=== PATIENT | female | born 1965 | race Caucasian/White ===

== ENCOUNTER → 2017-12-02 13:42 | Outpatient (CLI) | payer OTHER, SELFPAY ==
[2017-12-02 14:53] LABS: Absolute Lymphocyte Count 2.64 X10^3/ul (0.83-4.51); Absolute Neutrophil Count 3.1 X10^3/uL (2.0-7.7); Basophil# 0.05 X10^3/uL; Basophil% 0.8 % (0-1); Eosinophil# 0.19 X10^3/uL; Eosinophils% 2.9 % (0-5); Hematocrit 38.6 % (37-47); Hemoglobin 12.7 g/dl (12.0-15.0); Lymphocyte # 2.64 X10^3/ul (4.0); Lymphocyte % 40.9 % (19-41); Mean Corp Hgb Conc 32.9 g/gl (32-36); Mean Corpuscular Hgb 31.5 pg (27.0-32.0); Mean Corpuscular Volume 95.8 fL (81-99); Monocyte# 0.47 X10^3/uL; Monocyte% 7.3 % (0-10); Neutrophil # 3.11 X10^3/uL (2.7-7.7); Neutrophil % 48.1 % (47-70); Platelet Count 211 K/mm3 (150-450); RBC Distribution Width CV 12.6 % (11.6-14.6); RBC Distribution Width SD 43.8 fl (35.1-43.9); Red Blood Count 4.03 M/mm3 (4.2-5.4); White Blood Count 6.5 K/mm3 (4.4-11.0)
[2017-12-02 15:03] LABS: POSITIVE COUNT NO; POSITIVE DIFFERENTIAL NO; POSITIVE MORPHOLOGY NO
[2017-12-02 15:24] LABS: Vitamin D,25 Hydroxy 32.9 ng/mL (29.95-100.01)
== END ==
PROVIDERS: Family Provider Family Medicine; PCP Family Medicine; Visit Provider Obstetrics & Gynecology Gynecology
DX: R53.82 Chronic fatigue, unspecified (principal)
CPT/HCPCS: 36415; 82306; 85025

== ENCOUNTER 2018-12-30 05:26 | Day surgery (SDC) | payer OTHER, SELFPAY ==
[2017-07-09 11:07] VITALS: BMI 20.5
[2018-12-30] VITALS (7 sets, daily range): BP systolic 71–129; BP diastolic 58–92; PULSE 50–65; RESP 14–18; TEMP 36.5–36.6; O2SAT 98–100
--- NOTE | 2018-12-30 06:15 | PCM.HP.STD ---
Problem List (1) Screening for intestinal cancer Status: Acute History of Present Illness Date of Admission: 12/30/18 The patient is a 53 year old F who presents for screening colonoscopy today. She has never had a screening colonoscopy. There is no family history of colon cancer. She enjoys very excellent health. She has no chronic medical problems. Past Medical History Allergies No Known Allergies Allergy (Verified 12/30/18 05:40) Home Medications: Ambulatory Orders Medication Instructions Recorded Alis's wort 300 mg capsule 300 mg PO QDAY 07/09/17 Biotin 5,000 mcg SL DAILY 12/22/18 Multivit-Min/Iron/Folic/Lutein 1 ea PO DAILY 12/22/18 [Centrum Silver Women Tablet] Smoking Status: Never smoker Tobacco Use: Non-smoker Review of Systems Cardiovascular: Denies: Chest Pain Respiratory: Denies: Cough Gastrointestinal: Denies: Abdominal Pain, Melena Neurological: Denies: Difficulty swallowing Endocrine: Denies: Change in Body Habitus VTE Information - Inpt Only VTE Present on Admission: No Patient Problems: Active and Suspected Problems Screening for intestinal cancer (Acute) - Physical Exam General: Alert, Oriented x3, Cooperative, No apparent distress HEENT: Atraumatic Oral: Moist Mucosa Lungs: Clear to auscultation, Normal air movement Cardiovascular: Regular rate, Regular Rhythm Abdomen: Bowel Sounds Present, Soft, Non Tender, Non-Distended Extremities: No Calf Tenderness Psych/Mental Status: Normal Affect Vital Signs Temp Pulse Resp BP Pulse Ox 97.9 F 57 L 14 106/70 100 12/30/18 05:42 12/30/18 05:42 12/30/18 05:42 12/30/18 05:42 12/30/18 05:42 Oxygen Delivery Method Room Air Weight: 120 lb Body Mass Index (BMI) 20.0 Assessment/Plan All Active Problems Screening for intestinal cancer (Acute) Radiculopathy of lumbar region (Acute) Segmental and somatic dysfunction of lumbar region (Acute) Segmental and somatic dysfunction of sacral region (Acute) Segmental and somatic dysfunction of thoracic region (Acute) Segmental and somatic dysfunction of cervical region (Acute) 53-year-old female with no previous screening colonoscopy. I recommend a colonoscopy with possible biopsy or polypectomy is indicated. She is aware of the technique, benefits, risks, alternatives. She has had an opportunity to ask and have questions answered. She presents via open access today. We will proceed as noted. Felipe Faulkner M.D., F.A.C.S.
[2018-12-30] MEDS: Lactated Ringers 1,000 ML 75 ML IV (06:50)
--- NOTE | 2018-12-30 06:59 | OP.ENDO_ITS ---
12/30/2018 Jean-Paul Love [address] [place] [address] Re : Colonoscopy procedure for Madai Alonso Dear Dr. Love This procedure was performed on Sunday, December 30, 2018. My impressions and recommendations are as follows: Impressions : - Non-thrombosed external hemorrhoids, non-thrombosed internal hemorrhoids and internal hemorrhoids (Grade I) found on digital rectal exam. - Tortuous colon. - The examination was otherwise normal. - No specimens collected. Recommendations : - Discharge patient to home. - Resume previous diet. - Continue present medications. - Repeat colonoscopy in 10 years for screening purposes. My findings are described in the full procedure note, which is enclosed. If I can be of further assistance, please feel free to contact me at Doctor phone number(s): Work: . Sincerely, Felipe Faulkner MD 12/30/2018 6:58:39 AM This report has been signed electronically.
== END 2018-12-30 08:02 | disposition home or self-care (01) ==
LOC: EN 05:29 → AC 05:34
PROVIDERS: Family Provider Family Medicine; PCP Family Medicine; Referring Provider Surgery; Visit Provider Surgery
PROC: 0DJD8ZZ Inspection of Lower Intestinal Tract, Via Natural or Artificial Opening Endoscopic (ICD-10-PCS; CPT 45378; principal; 2018-12-30 06:25)
DX: Z12.11 Encounter for screening for malignant neoplasm of colon (principal); K64.0 First degree hemorrhoids
CPT/HCPCS: 45378; 99152; 99153; J7120; J2405

== ENCOUNTER → 2019-01-29 | Outpatient (CLI) | payer OTHER, SELFPAY ==
[2019-01-29 09:07] LABS: Red Blood Cells-Urine 0 SEEN /hpf (0-5); White Blood Cells 0 SEEN /hpf (0-5)
[2019-01-29 09:35] LABS: Absolute Lymphocyte Count 2.67 X10^3/uL (0.83-4.51); Absolute Neutrophil Count 3.5 X10^3/uL (2.0-7.7); Basophil# 0.06 X10^3/uL; Basophil% 0.8 % (0-1); Eosinophil# 0.27 X10^3/uL; Eosinophils% 3.7 % (0-5); Hematocrit 40.1 % (37-47); Hemoglobin 13.3 g/dL (12.0-15.0); Lymphocyte # 2.67 X10^3/ul (4.0); Lymphocyte % 36.8 % (19-41); Mean Corp Hgb Conc 33.2 g/dL (32-36); Mean Corpuscular Hgb 31.5 pg (27.0-32.0); Mean Platelet Vol. 9.7 fl (6.2-12.0); Monocyte# 0.74 X10^3/uL; Monocyte% 10.2 % (0-10); NRBC Flagged by Analyzer 0 % (0-5); Neutrophil % 48.2 % (47-70); Platelet Count 232 K/mm3 (150-450); RBC Distribution Width CV 12.1 % (11.6-14.6); Red Blood Count 4.22 M/mm3 (4.2-5.4); White Blood Count 7.3 K/mm3 (4.4-11.0)
[2019-01-29 09:38] LABS: Color, Urine Yellow (Yellow); Glucose, Dipstick Normal (Normal); Ketone-Dipstick Negative (Negative); Leukocyte Esterase-Dipstick Negative /ul (Negative); Nitrite-Dipstick Negative (Negative); Occult Blood-Urine Negative /ul (Negative); Protein-Dipstick Negative (Negative); Urine Bilirubin Dipstick Negative (Negative); Urine Clarity Sl. Cloudy (Clear); Urine Urobilinogen 1 mg/dl (Normal)
[2019-01-29 09:47] LABS: Bacteria RARE /hpf (None Seen); Mucous, Urine 1+ /hpf (<or=2+); Squamous Epithelial Cells - UA 0-5 SEEN /hpf (5-10)
== END | disposition home or self-care (01) ==
LOC: LAB 09:01
PROVIDERS: Family Provider Family Medicine; PCP Family Medicine; Referring Provider Obstetrics & Gynecology Gynecology; Visit Provider Obstetrics & Gynecology Gynecology
DX: R32 Unspecified urinary incontinence (principal); D72.820 Lymphocytosis (symptomatic)
CPT/HCPCS: 36415; 81001; 85025; 87086

== ENCOUNTER → 2019-02-25 | Outpatient (CLI) | payer OTHER, SELFPAY ==
--- NOTE | 2019-02-25 10:40 | BI_ITS ---
MAMMOGRAPHY - BILATERAL SCREENING REASON FOR EXAM: Female, 53 years old. Routine annual screening examination. PERTINENT HISTORY: Non-contributory. Remote left stereotactic breast biopsy. TECHNIQUE: Digital bilateral breast chana (3D mammographic acquisition) in the CC and MLO projections. 2-D mediolateral oblique (MLO) and craniocaudad (CC) views of both breasts were obtained. CAD: Full Field Digital Mammography with Computer Added Detection was performed. COMPARISON: Comparison is made with prior study August 08, 2016 and December 02, 2013. FINDINGS: Breast Composition: The breasts are extremely dense, which lowers the sensitivity of mammography. There are no dominant masses or suspicious calcifications. No other significant abnormalities are identified. There has been no significant change since the prior study. BI/SCREEN MAMM (CAD) W/CHANA BILAT IMPRESSION: Stable bilateral screening mammogram. Yearly follow-up mammogram recommended. (A) ASSESSMENT CATEGORY: BIRADS Category 1: Negative. A letter regarding these results will be sent to the patient by the facility within 30 days. Approximately 10% of breast cancers are not detected by mammography. A normal mammogram should not delay biopsy of a clinically suspicious abnormality. [id number] Electronically Signed: Hermelindo Ramos, at 13:01 EDT , Service support ,
== END | disposition home or self-care (01) ==
LOC: OPBI 10:38
PROVIDERS: Family Provider Family Medicine; PCP Family Medicine; Referring Provider Obstetrics & Gynecology Gynecology; Visit Provider Obstetrics & Gynecology Gynecology
DX: Z12.31 Encounter for screening mammogram for malignant neoplasm of breast (principal)
CPT/HCPCS: 77063; 77067

== ENCOUNTER → 2019-03-03 | Outpatient (CLI) | payer OTHER, SELFPAY ==
[2019-03-03 14:23] LABS: Thyroid Stim Hormone (TSH) 1.59 uIU/mL (0.358-3.74)
== END | disposition home or self-care (01) ==
LOC: LAB 12:27
PROVIDERS: Family Provider Family Medicine; PCP Family Medicine; Referring Provider Family Medicine; Visit Provider Family Medicine
DX: R63.5 Abnormal weight gain (principal)
CPT/HCPCS: 36415; 84443

== ENCOUNTER → 2019-12-11 | Outpatient (CLI) | payer OTHER, SELFPAY ==
--- NOTE | 2019-12-11 14:01 | US_ITS ---
STUDY: THYROID ULTRASOUND REASON FOR EXAM: Female, 53 years old. nodule felt by doctor TECHNIQUE: Ultrasound evaluation of the thyroid was performed with real-time and static moreau-scale imaging. COMPARISON: None. FINDINGS: RIGHT LOBE: The right lobe of the thyroid gland measures 5.3 x 1.7 x 1.6 cm. There is a homogeneous echotexture. 3 nodules noted in the mid and lower pole. One appears to be calcified and measures 8 x 6 x 6 mm. 2 other heterogeneous nodules with irregular margins and kj nodular DOPPLER flow measured 5 x 5 x 4 and 6 x 6 x 4 mm. LEFT LOBE: The left lobe of the thyroid gland measures 4.5 x 1.9 x 1.3 cm. There is a homogeneous echotexture. 3 heterogeneous nodules in the upper and midpole measure 13 x 12 x 8 mm, 9 x 6 x 7 mm and 8 x 4 x 4 mm. The first 2 are irregular. The first demonstrates intra nodular flow and the others, kj Nodular DOPPLER blood flow. ISTHMUS: The isthmus measures 2 mm . The regional lymph nodes are normal. US/Thyroid IMPRESSION: Multinodular thyroid goiter. Recommend correlation with nuclear medicine and possible FNA largest nodule. Electronically Signed: Manohar Phelan MD at 17:09 EDT , Service support ,
== END | disposition home or self-care (01) ==
LOC: US 14:00
PROVIDERS: PCP Family Medicine; Referring Provider Family Medicine; Visit Provider Family Medicine
DX: E04.1 Nontoxic single thyroid nodule (principal)
CPT/HCPCS: 76536

== ENCOUNTER → 2019-12-15 | Outpatient (CLI) | payer OTHER, SELFPAY ==
[2019-12-15 13:18] LABS: Free T3 3.1 pg/mL (2.18-3.98); T4 Free Direct 1.09 ng/dL (0.76-1.46); Thyroid Stim Hormone (TSH) 1.37 uIU/mL (0.358-3.74)
[2019-12-21 03:59] LABS: Anti-Thyroglobulin AB 16.4 IU/mL (0.0-0.9); Thyroglobulin RIA 9.6 ng/mL (.); Thyroid Peroxidase AB 100 IU/mL (0-34)
== END | disposition home or self-care (01) ==
PROVIDERS: PCP Family Medicine; Referring Provider Family Medicine; Visit Provider Family Medicine
DX: E04.1 Nontoxic single thyroid nodule (principal)
CPT/HCPCS: 36415; 84432; 84439; 84443; 84481; 86376; 86800

== ENCOUNTER 2019-12-18 05:49 | Day surgery (SDC) | payer OTHER, SELFPAY ==
[2019-12-11 13:49] LABS: Probe Check PASS; Specimen Processing Control PASS
[2019-12-18] VITALS (8 sets, daily range): BP systolic 81–109; BP diastolic 44–68; PULSE 57–66; RESP 15–16; TEMP 36.2–36.9; O2SAT 95–100; BMI 20.2
--- NOTE | 2019-12-18 | WART_PTH ---
PATIENT: ALEXIS WASHBURN LOC: [facility] U#:[id number] AGE/SX: 53/F ROOM: RE12/18/[address]: Dr. Abdiel Puente DPM : 1965 BED: DIS: 12/18/2019 SPEC #: [id number] RECD: 12/18/19 09:50 STATUS: MELISA DANIELLE #: [id number] ARI: 12/18/19 00:[address]: Abdiel Puente DEPT: SURGICAL PATHOLOGY RECD BY: Alcides Gaines ENTERED: 12/18/19 09:51 SP TYPE: Guillermina TRAN DR: Dr. Jean-Paul Love MD Tissues: Epidermis Procedures: Surgery Specimen Level IV HEADER OPERATION: Excision and chemical destruction, plantar warts right foot PRE-OP DIAGNOSIS: Plantar warts right foot TISSUE SUBMITTED: Plantar warts right foot MICROSCOPIC DIAGNOSIS Skin lesions of right foot, shave biopsies: Consistent with fragments of verruca vulgaris. AM:sophie 12/21/19 MICROSCOPIC DESCRIPTION Slides are reviewed. GROSS DESCRIPTION Received in fixative is one container labeled with the patient's name and designated plantar warts right foot. The specimen consists of multiple irregular fragments of light wilkins shaved skin fragments ranging in size from 0.7 to 3.5 cm. Pallet Stone Positioner sections are submitted in one cassette. / AM:sophie 12/18/19 TC:5 CPT: 17019
[2019-12-18] MEDS: Lactated Ringers 1,000 ML 100 ML IV (06:19)
[2019-12-18] MEDS: Cefazolin 2 GM in 0.9% Normal Saline 100 ML IV (07:28)
[2019-12-18] MEDS: Bupiv/Epi 0.25% 30 ML Vial (07:45)
--- NOTE | 2019-12-18 08:46 | DCINST_ITS ---
Discharge Diet: Light diet - advance as tolerated Discharge Activity: May Not Drive, May not drive while taking narcotic pain medications. Weight Bearing Status: Partial weight bearing - Avoid weight on wart excision sites, right foot Keep extremity elevated above heart level: Right Leg - Keep right foot elevated as much as possible using pillows and heel offloaded. Call your doctor if your incision/area has: Continuous Slow Oozing, Sudden Increased Bleeding, Foul Smelling Discharge Call your doctor if you observe: Fever of 101 or Higher, Shortness of breath, Chest pain, Calf discomfort, Uncontrolled pain Cleanse incision/area with: - - Right foot: Keep dressing clean, dry and intact until tomorrow 12/19/2019. The change dressing daily. Cleanse with anti-bacterial soap and water, apply betadine solution then adaptic, then apply overlying gauze dressing. Change more frequently if needed. Allergies/Adverse Reactions: Allergies No Known Allergies Allergy (Verified 12/18/19 05:54) Medications to take at Discharge Alis's wort 300 mg capsule 300 mg PO QDAY 07/09/17 Biotin 5,000 mcg SL DAILY 12/22/18 Multivit-Min/Iron/Folic/Lutein [Centrum Silver Women Tablet] 1 ea PO DAILY 12/22/18 Ascorbic Acid [Vitamin C] 500 mg PO DAILY@0800 12/10/19 Vitamin B Complex [B Complex] 1 ea PO QHS 12/10/19 Hydrocodone/Acetaminophen [[place] 5-325 Tablet] 1 - 2 each PO Q6H PRN PRN 3 Days #15 tablet 12/18/19 The following prescriptions were given: Hydrocodone/Acetaminophen [[place] 5-325 Tablet] 1 - 2 each PO Q6H PRN PRN 3 Days #15 tablet PRN Reason: Pain Score 4-10/10 Transmission Status: Sent to [facility] Primary Care Physician: Jean-Paul Love MD [Primary Care Provider] - Test Results: Test results from this visit will be discussed in further detail at your follow- up appointment, if applicable. Please Follow Up With: Abdiel Puente DPM - call Dr. Puente sooner if needed. Office: [phone], cell: [phone] When: 1 week, sooner if needed
--- NOTE | 2019-12-18 08:50 | OP.PCM_ITS ---
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 Meghan Obrien Specimen's removed: Excised plantar warts right foot sent to pathology Estimated Blood Loss (mL): 5mL Description of Procedure: Indications: This a 53 year old female with chronic plantar wart right heel, also to the 1st toe and arch. Heel wart has been present for years, had it removed in 2017 but returned. At this time patient elects to proceed with curettage and chemical destruction of the verruca tissue. Reviewed curettage with application of phenol and silver nitrate (chemical destruction) procedure with the patient in great detail - reviewed the rationale of this procedure as well as the risks and potential complications, as well, advising these include, but not limited to pain, scarring, nerve damage, delayed healing, nonhealing, chronic pain and scarring, swelling, loss of function, recurrence, allergic reaction, infection, loss of limb, loss of life. Patient expressed understanding and agreement. The alternative options were reviewed as well, including further treatment with topical medication, cryotherapy, laser, oral medication, and even no treatment - reviewed the associated risks vs possible benefits of each option. Patient elected to proceed with the curettage with phenol with silver nitrate application to treat this in the operating room. The consent form was reviewed with patient in detail, and patient freely signed it. Operative procedure: Patient was brought back to the operating room and was placed on the operating room table in the supine position. The patient received 2 grams of IV Ancef for antibiotic prophylaxis. A timeout was performed and patient was properly identified and surgical plan confirmed. The patient received MAC anesthesia per the anesthesia team. The patient the wart sites were injected with a total of 15mL of 0.5% marcaine plain with 1:200,000 epi after the overlying skin was first cleansed with isopropyl alcohol. The foot was scrubbed and prepped, as well as draped in the usual aseptic fashion. The right foot was elevated and a well padding ankle pneumatic tourniquet was inflated to 250mmHg. The verrucous tissue was curettaged from the right foot, there was a large 3cm x 3.5cm wart to the plantar lateral heel with two smaller satellite lesions to the plantar posterior heel, also a small wart to the plantar arch and also a 0.5cm x 0.8cm wart to the plantar 1st toe. The verrucous tissue was removed, removing the affected epidermal layer tissue, and this was all sent together to pathology for further analysis. This was removed down to the basement membrane of the epidermis - down to healthy viable base and normal tissue margins, there was no noted deeper involvement. Application of phenol was applied and one application of silver nitrate was applied to each site, the site was flushed with alcohol. The pneumatic tourniquet was deflated at 48 minutes, there was immediate return of perfusion to the foot, with CFT < 2 seconds to all toes, and normal temperature. A dressing was applied which consistent of betadine solution , adaptic, 4x4 gauze, kerlix and cole bandage. Hemostasis was achieved. Patient was transported from the operating room to the recovery room with vital signs stable and in good condition. Advised patient to limit weightbearing to that area of the foot as much as possible, keep offloaded. Advised the patient to keep the dressing clean, dry, and intact for 24 hours, then may remove and clean with anti-bacterial soap and water. Apply betadine solution and adaptic, and gauze dressing 2 times daily. [place] was prescribed to aid with post op pain. Also a knee walker was prescribed. The patient to follow up in 1 weeks for a check up, but sooner if needed. Patient tolerated well with no complications. Post op instructions reviewed with both patient and her who was with her today. Grafts/Implants Used: None - Complications None
== END 2019-12-18 10:47 | disposition home or self-care (01) ==
LOC: SDC 05:49 → AC 05:59
PROVIDERS: PCP Family Medicine; Referring Provider Podiatrist; Visit Provider Podiatrist
PROC: (CPT 11406; principal; 2019-12-18 07:15)
DX: B07.0 Plantar wart (principal); L65.0 Telogen effluvium; E04.1 Nontoxic single thyroid nodule
CPT/HCPCS: 11406; 87635; 88305; 94799; J7120; J2405; U0003

== ENCOUNTER → 2020-01-04 07:19 | Outpatient (CLI) | payer OTHER, SELFPAY ==
[2020-01-04 15:20] VITALS: BMI 20.1
--- NOTE | 2020-01-04 15:50 | ASPS_PTH ---
PATIENT: ALEXIS WASHBURN LOC: [facility] U#:[id number] AGE/SX: 59/F ROOM: RE01/04/[address]: Dr. Felipe Faulkner MD : 1965 BED: DIS: SPEC #: [id number] RECD: 01/04/20 16:32 STATUS: MELISA DANIELLE #: [id number] ARI: 01/04/20 15:[address]: Felipe Faulkner DEPT: CYTOLOGY RECD BY: Antolin Ramires ENTERED: 01/05/20 08:01 SP TYPE: ASPIRATION OTHR DR: Dr. Jean-Paul Love MD Tissues: A - Thyroid gland, NOS B - Thyroid gland, NOS C - Trachea, NOS D - Thyroid gland, NOS Procedures: Special Stain Group II Cytology Other HEADER OPERATION: Bilateral thyroid fine needle aspiration PRE-OP DIAGNOSIS: Multiple thyroid nodules TISSUE SUBMITTED: A - Left superior thyroid slides x6, B - Left mid thyroid slides x4, C - Left calcified trachea slides x4, D - Right superficial mid thyroid slides x4 DIAGNOSIS CYTOLOGY A. Fine needle aspiration, left superior thyroid nodule (smears): Adequate for evaluation. Benign, consistent with cystic colloid nodule. B. Fine needle aspiration, left mid thyroid nodule (smears): Adequate for evaluation. Negative, consistent with benign follicular nodule. C. Fine needle aspiration, left calcified trachea (smears): Blood and rare Banal calcified debris. See comment. D. Fine needle aspiration, right superficial mid thyroid nodule (smears): Adequate for evaluation. Negative, consistent with benign follicular nodule. AM:sophie 01/05/20 COMMENT C. Clinical correlation is suggested. Case has been reviewed in consultation with Dr. Jefferson who concurs with the above diagnosis. IDC:SJ CYTOLOGY STUDY Slides are reviewed. CYTOLOGY GROSS A - Received are six smears labeled with the patient's name and designated per the requisition as left superior thyroid. Submitted for staining. B - Received are four smears labeled with the patient's name and designated per the requisition as left mid thyroid. Submitted for staining. C - Received are four smears labeled with the patient's name and designated per the requisition as left calcified trachea. Submitted for staining. D - Received are four smears labeled with the patient's name and designated per the requisition as right superficial mid thyroid. Submitted for staining. / sophie 01/04/20 TC:3 CPT: 72806 x4
== END ==
PROVIDERS: PCP Family Medicine; Referring Provider Surgery; Visit Provider Surgery
DX: E04.2 Nontoxic multinodular goiter (principal)
CPT/HCPCS: 88161; 88313

== ENCOUNTER → 2020-10-04 07:28 | Outpatient (CLI) | payer OTHER, SELFPAY ==
[2020-01-04 15:20] VITALS: BMI 20.1
[2020-10-04 09:16] LABS: T4 Free Direct 1.07 ng/dL (0.76-1.46); Thyroid Stim Hormone (TSH) 1.65 uIU/mL (0.358-3.74)
== END ==
PROVIDERS: PCP Family Medicine; Referring Provider Family Medicine; Visit Provider Family Medicine
DX: E04.1 Nontoxic single thyroid nodule (principal)
CPT/HCPCS: 84439; 84443

== ENCOUNTER → 2020-10-21 07:29 | Outpatient (CLI) | payer OTHER, SELFPAY ==
[2020-01-04 15:20] VITALS: BMI 20.1
[2020-10-21 08:58] LABS: Vitamin D,25 Hydroxy 49.7 ng/mL
== END ==
PROVIDERS: PCP Family Medicine; Referring Provider Obstetrics & Gynecology Gynecology; Visit Provider Obstetrics & Gynecology Gynecology
DX: R53.83 Other fatigue (principal); N81.2 Incomplete uterovaginal prolapse; Z12.39 Encounter for other screening for malignant neoplasm of breast; Z12.4 Encounter for screening for malignant neoplasm of cervix
CPT/HCPCS: 36415; 82306

== ENCOUNTER → 2020-10-26 12:33 | Outpatient (CLI) | payer OTHER, SELFPAY ==
[2020-01-04 15:20] VITALS: BMI 20.1
--- NOTE | 2020-10-26 12:38 | BI_ITS ---
MAMMOGRAPHY - BILATERAL SCREENING REASON FOR EXAM: Female, 54 years old. Routine annual screening examination. PERTINENT HISTORY: Non-contributory. History of remote left stereotactic breast biopsy. TECHNIQUE: Digital bilateral breast chana (3D mammographic acquisition) in the CC and MLO projections. 2-D mediolateral oblique (MLO) and craniocaudad (CC) views of both breasts were obtained. CAD: Full Field Digital Mammography with Computer Added Detection was performed. COMPARISON: Comparison is made with prior study dated 02/25/2019 and 08/08/2016. FINDINGS: Breast Composition: The breasts are extremely dense, which lowers the sensitivity of mammography. There are no dominant masses or suspicious calcifications. No other significant abnormalities are identified. There has been no significant change since the prior study. BI/SCRN MAMM (CAD)W/CHANA BILAT IMPRESSION: Stable bilateral screening mammogram. Yearly follow-up mammogram recommended. (A) ASSESSMENT CATEGORY: BIRADS Category 1: Negative. A letter regarding these results will be sent to the patient by the facility within 30 days. Approximately 10% of breast cancers are not detected by mammography. A normal mammogram should not delay biopsy of a clinically suspicious abnormality. [id number] Electronically Signed: Hermelindo Ramos MD at 13:14 EDT , Service support ,
== END ==
PROVIDERS: PCP Family Medicine; Referring Provider Obstetrics & Gynecology Gynecology; Visit Provider Obstetrics & Gynecology Gynecology
DX: Z12.31 Encounter for screening mammogram for malignant neoplasm of breast (principal)
CPT/HCPCS: 77063; 77067

== ENCOUNTER → 2021-04-15 09:27 | Outpatient (CLI) | payer OTHER, SELFPAY ==
[2021-04-15 09:37] LABS: Bacteria 0 SEEN /hpf (None Seen); Mucous, Urine 0 SEEN /hpf (<or=2+); Red Blood Cells-Urine 0 SEEN /hpf (0-5); Squamous Epithelial Cells - UA 0 SEEN /hpf (5-10)
[2021-04-15 09:59] LABS: Color, Urine Yellow (Yellow); Glucose, Dipstick Normal (Normal); Ketone-Dipstick Negative (Negative); Leukocyte Esterase-Dipstick 25 /ul (Negative); Nitrite-Dipstick Negative (Negative); Occult Blood-Urine 25 /ul (Negative); Protein-Dipstick 15 mg/dl (Negative); Urine Bilirubin Dipstick Negative (Negative); Urine Clarity Clear (Clear); Urine Urobilinogen Normal (Normal)
[2021-04-15 10:09] LABS: Creatinine, Serum 0.78 mg/dL (0.55-1.02); EST Glomerular Filtration Rate 81 mL/min (>60); Est Glom Filt Rate - Afr Amer 99 mL/min (>60)
[2021-04-15 10:48] LABS: White Blood Cells 0-5 SEEN /hpf (0-5)
== END ==
LOC: LAB.FUTURE 09:27 → LAB 09:28
PROVIDERS: PCP Family Medicine; Referring Provider Obstetrics & Gynecology Gynecology; Visit Provider Obstetrics & Gynecology Gynecology
DX: R30.0 Dysuria (principal)
CPT/HCPCS: 36415; 81001; 82565; 87086; 87088

== ENCOUNTER → 2021-10-17 | Outpatient (CLI) | payer OTHER, SELFPAY ==
[2021-10-17 10:44] LABS: T4 Free Direct 0.94 ng/dL (0.76-1.46); Thyroid Stim Hormone (TSH) 1.21 uIU/mL (0.358-3.74)
== END | disposition home or self-care (01) ==
LOC: LAB 07:40
PROVIDERS: PCP Family Medicine; Referring Provider Family Medicine; Visit Provider Family Medicine
DX: E04.1 Nontoxic single thyroid nodule (principal)
CPT/HCPCS: 84439; 84443

== ENCOUNTER → 2021-11-07 | Outpatient (CLI) | payer OTHER, SELFPAY ==
--- NOTE | 2021-11-07 12:18 | BI_ITS ---
MAMMOGRAPHY - BILATERAL SCREENING REASON FOR EXAM: Female, 55 years old. Routine annual screening examination. PERTINENT HISTORY: Non-contributory. Remote left stereotactic breast biopsy. TECHNIQUE: Digital bilateral breast chana (3D mammographic acquisition) in the CC and MLO projections. 2-D mediolateral oblique (MLO) and craniocaudad (CC) views of both breasts were obtained. CAD: Full Field Digital Mammography with Computer Added Detection was performed. COMPARISON: Comparison is made with prior study dated 10/26/2020 and 02/25/2019. FINDINGS: Breast Composition: The breasts are extremely dense, which lowers the sensitivity of mammography. There are no dominant masses or suspicious calcifications. No other significant abnormalities are identified. There has been no significant change since the prior study. BI/SCRN MAMM (CAD)W/CHANA BILAT IMPRESSION: Stable bilateral screening mammogram. Yearly follow-up mammogram recommended. (A) ASSESSMENT CATEGORY: BIRADS Category 1: Negative. A letter regarding these results will be sent to the patient by the facility within 30 days. Approximately 10% of breast cancers are not detected by mammography. A normal mammogram should not delay biopsy of a clinically suspicious abnormality. [id number] Electronically Signed: Hermelindo Ramos MD at 13:16 EDT ,
== END | disposition home or self-care (01) ==
LOC: OPBI 12:14
PROVIDERS: PCP Family Medicine; Referring Provider Obstetrics & Gynecology Gynecology; Visit Provider Obstetrics & Gynecology Gynecology
DX: Z12.31 Encounter for screening mammogram for malignant neoplasm of breast (principal)
CPT/HCPCS: 77063; 77067

== ENCOUNTER 2022-04-18 18:42 | Observation (INO) | payer OTHER, SELFPAY ==
--- NOTE | 2022-04-16 07:32 | EKG12_ITS ---
Test Reason : PREOP Blood Pressure : / mmHG Vent. Rate : 051 BPM Atrial Rate : 051 BPM P-R Int : 162 ms QRS Dur : 082 ms QT Int : 462 ms P-R-T Axes : 033 053 070 degrees QTc Int : 425 ms Sinus bradycardia Otherwise normal ECG Confirmed by JAYCEE PINEDA, INA ([id number]), health editor ANAI IYER ([id number]) on 04/17/2022 12:38:40 PM Referred By: Kasey Sutherland Confirmed By:INA CHAMPION MD
[2022-04-16 08:20] LABS: Hematocrit 39.9 % (37-47); Hemoglobin 13.1 g/dL (12.0-15.0); Mean Corp Hgb Conc 32.8 g/dL (32-36); Mean Corpuscular Hgb 31.4 pg (27.0-32.0); Mean Corpuscular Volume 95.7 fL (81-99); Platelet Count 234 K/mm3 (150-450); RBC Distribution Width CV 12.5 % (11.6-14.6); RBC Distribution Width SD 43.7 fl (35.1-43.9); Red Blood Count 4.17 M/mm3 (4.2-5.4); White Blood Count 5.4 K/mm3 (4.4-11.0)
[2022-04-16 08:54] LABS: Anion Gap 7 (5-15); BUN 15 mg/dL (7-18); BUN/Creat Ratio 19.4 RATIO (10-20); Calcium,Total 9.3 mg/dL (8.5-10.1); Chloride 106 mmol/L (98-107); Creatinine, Serum 0.77 mg/dL (0.55-1.02); EST Glomerular Filtration Rate 82 mL/min (>60); Est Glom Filt Rate - Afr Amer 99 mL/min (>60); Glucose 95 mg/dL (74-106); Potassium 3.7 mmol/L (3.5-5.1); Sodium Level 142 mmol/L (136-145)
[2022-04-16 10:22] LABS: ALB/GLOB Ratio 1.2 RATIO (0.9-2.4); AST(SGOT) 22 U/L (15-37); Alanine Aminotransfer ALT/SGPT 31 U/L (13-56); Alkaline Phosphatase 48 U/L (45-117); Anion Gap 6 (5-15); BUN 15 mg/dL (7-18); BUN/Creat Ratio 18.2 RATIO (10-20); Calcium,Total 9.2 mg/dL (8.5-10.1); Chloride 108 mmol/L (98-107); Creatinine, Serum 0.82 mg/dL (0.55-1.02); EST Glomerular Filtration Rate 76 mL/min (>60); Est Glom Filt Rate - Afr Amer 91 mL/min (>60); Globulin 3.4 g/dL (2.2-4.2); Glucose 94 mg/dL (74-106); Potassium 3.6 mmol/L (3.5-5.1); Protein, Total 7.4 g/dL (6.4-8.2); Sodium Level 141 mmol/L (136-145)
[2022-04-18] VITALS (11 sets, daily range): BP systolic 84–102; BP diastolic 55–72; PULSE 52–69; RESP 14–16; TEMP 36.3–37.2; O2SAT 96–100; BMI 19.8
--- NOTE | 2022-04-18 | HYST_PTH ---
PATIENT: ALEXIS WASHBURN LOC: [facility] U#:[id number] AGE/SX: 56/F ROOM: [facility] RE04/18/[address]: Dr. Kasey Sutherland MD : 1965 BED: 1 DIS: 04/19/2022 SPEC #: [id number] RECD: 04/18/22 08:22 STATUS: MELISA SANTOS #: [id number] ARI: 04/18/22 00:[address]: Kasey Sutherland DEPT: SURGICAL PATHOLOGY RECD BY: Alcides Gaines ENTERED: 04/19/22 08:23 SP TYPE: HYSTERECT OTHR DR: Dr. Jean-Paul Love MD Tissues: A - Uterus, NOS B - Peritoneal cavity, NOS Procedures: Surgery Specimen Level IV Surgery Specimen Level V HEADER OPERATION: Vaginal hysterectomy, A & P repair, vaginal cuff suspension PRE-OP DIAGNOSIS: Incomplete uterine prolapse, stress incontinence, postmenopausal atrophic vaginitis, intrinsic sphincter deficiency TISSUE SUBMITTED: A - Uterus, cervix, B ? Vaginal perineal, tag irregular tissue MICROSCOPIC DIAGNOSIS A. Uterus, hysterectomy: Cervix ? nabothian cysts and mild chronic inflammation. Endometrium ? focal simple hyperplasia without atypia. Myometrium ? leiomyomas and superficial adenomyosis. B. Vaginal perineal tissue, biopsy: Mild dermal nonspecific chronic inflammation. AM:sophie 04/20/2022 COMMENT Case has been reviewed in consultation with Dr. Jefferson who concurs with the above diagnosis. IDC:SJ MICROSCOPIC DESCRIPTION Slides are reviewed. GROSS DESCRIPTION A - Received in fixative is one container labeled with the patient's name and designated uterus, cervix. The specimen consists of a hysterectomy specimen consisting of uterus with cervix weighing 50 gm and measuring 7 x 5 x 3 cm. The serosal surface is wilkins, glistening. A subserosal nodule is noted at the left cornu measuring 1.2 cm in greatest dimension. The ectocervical mucosa is unremarkable. The external os is circular in contour. The endocervical canal measures 5 cm in length and the endocervical mucosa is wilkins, glistening and unremarkable. The triangular endometrial cavity measures 3.5 cm in length and 2.5 cm in width. The endometrium is wilkins, glistening without any mass lesion and measures <0.1 cm in thickness. Sections reveal an intramural nodular mass measuring 0.7 cm in greatest dimension. The uterine wall measures up to 2 cm in thickness. Air Conditioning Technician sections are submitted in seven cassettes as follows: 1 - anterior cervix, 2 - posterior cervix, 3 & 4 - anterior uterine wall, 5 & 6 - posterior uterine wall and intramural nodular mass, 7 - cornu and nodular mass, entire submitted. B - Received in fixative is one container labeled with the patient's name and designated vaginal perineal, tag irregular tissue. The specimen consists of an irregular piece of wilkins-white skin measuring 3 x 1.5 x 1 cm. A suture is noted at one end; however, it is not oriented. Area of suture and adjacent area is inked black and the rest of the specimen is inked blue. The specimen is serially sectioned and submitted entirely in two cassettes. / SJ:sophie 04/19/2022 TC:1 CPT: 96478, 65392
[2022-04-18] MEDS: Lactated Ringers 1,000 ML 125 ML IV ×5 (11:04→18:45)
[2022-04-18] MEDS: Lidocaine 2% /Epi 1:100 (20ml) 20 ML VIAL (12:47)
[2022-04-18] MEDS: Cefotetan 2 GM in 0.9% NS 100 ML IV (13:07)
[2022-04-18] MEDS: Lidocaine 1% (30 ml sdv) 30 ML Vial (14:45)
[2022-04-18] MEDS: Estrogens,Conj. 1 Tube 1 DOSE (15:25)
--- NOTE | 2022-04-18 17:05 | PCM.OPRPT ---
Report of Operation Date of Procedure: 04/18/22 Pre-Operative Diagnosis: Incomplete uterovaginal prolapse, stress urinary incontinence Post-Operative Diagnosis: Same Surgery/Procedure Performed:: Cystoscopy, bilateral ureteral catheterization, left retrograde pyelogram, left ureteral stent insertion, mid urethral sling insertion Surgeon: Kasey Sutherland Type of Anesthesia: General Estimated Blood Loss (mL): 30 cc Description of Procedure: The patient is a 56-year-old female with a history of prolapse desiring surgical intervention who underwent preoperative testing in the office and now presents for intervention. Informed consent was obtained. The patient was taken to the operating room and placed on the operating room table. Anesthesia monitored the head, neck, airway, IV access and vital signs throughout the case. Once anesthesia was appropriately administered, the patient was placed into exaggerated dorsal lithotomy in Trendelenburg position. A Ly catheter was inserted to straight drain. Dr. Carlson proceeded with her portion of the case. As I started with my portion of the procedure, the uterosacral ligament sutures were already in place loosely bilaterally. The Ly catheter was removed and the cystoscope was inserted through the urethra under direct visualization. There were no bladder injuries identified. The cystocele repair was noted in the midline. The right ureteral orifice was identified with a good ureteral jet. To confirm drainage of the ureter, it was intubated with a whistle-tip catheter which easily extended to 20 cm without evidence of obstruction or injury. On the patient's left side, an attempt was made at passage of a whistle-tip catheter, Pollick catheter and a Glidewire none of which would extend beyond the orifice. The uterosacral ligament suture and the Amina plication sutures were removed by Dr. Carlson progressively until the obstruction was relieved and a Pollick catheter easily passed to 20 cm without obstruction. The C-arm was brought into the room. Contrast was injected in retrograde fashion through the Pollick catheter clearly outlining the left renal pelvis and calyces. At this time a Glidewire was passed through the Pollick catheter which was then removed. A 6 Luxembourgish 24 cm JJ stent was passed over the wire with good curling in the renal pelvis as well as the urinary bladder. Contrast was seen extruding from the stent. Fluoroscopy was performed of the remainder of the ureter and contrast was seen flowing alongside the stent down to the bladder. There is no evidence of extravasation. At this time the cystoscope was removed and the Ly catheter was replaced. The mid urethra was isolated and injected submucosally for hydrostatic dissection. A midline incision was made approximately 1.5 cm in length. Sharp and blunt dissection was performed on either side of the urethra with care being taken to avoid entrance into the urethra or the vaginal mucosa. Using the trochars provided, the Altis mid urethral sling was inserted through the incision into the obturator complexes bilaterally. With care being taken to avoid entrance into the bladder or the vaginal mucosa. The sling was tensioned using the tensioning suture which was then cut. The sling lay flat against the urethra. The midline incision was then closed using running interlocking 2-0 Vicryl. At this time the Ly catheter was removed and the cystoscope was inserted through the urethra. Using the 70 degree lens, the bladder was once again examined in its entirety and no evidence of injury was identified. There was no foreign body within the urinary bladder aside from the ureteral stent. At this time the cystoscope was removed revealing no injury to the urethra. The Ly catheter was then reinserted and 10 cc was placed into the balloon. The procedure was turned back over to Dr. Carlson for completion. Grafts/Implants Used: Altis mid urethral sling, 6 x 24 JJ stent Complications None Admit VTE Documentation VTE Present on Admission: Yes VTE Mechan Device Prophylaxis: SCD's VTE Pharm Prophylaxis ordered?: Yes
--- NOTE | 2022-04-18 17:46 | OP.PCM_ITS ---
Problems Associated Problem List Diagnoses (1) Uterovaginal prolapse, incomplete: (2) Cystocele and rectocele with incomplete uterovaginal prolapse: Report of Operation Date of Procedure: 04/18/22 Pre-Operative Diagnosis: Incomplete uterovaginal prolapse with cystocele and r ectocele Post-Operative Diagnosis: Same Surgery/Procedure Performed:: Vaginal hysterectomy with anterior and posterior colpoperineorrhaphy and unilateral uterosacral Suspension Description of Surgical Findings:: Small uterus with normal ovaries visualized bilaterally. The left tube was seen in totality and at least half of the right tube. Surgeon: Jazmín Carlson power engineer: Marissa Jacinto Type of Anesthesia: General/Regional Anesthesiologist: Milady Knowles Special Medications: Dilute 1 and 300,000 epinephrine solution was used intraoperatively and at the end of the case 8 mL of quarter percent bupivacaine was injected around the perineal repair Specimen's removed: Uterus, and perineal skin sent for pathology. Vaginal epithelium not sent. Drains: Ly catheter to continuous drainage. The patient also has a left- sided s Estimated Blood Loss (mL): 150 mL tot Description of Procedure: In the operating room general anesthesia was obtained and the patient was prepped and draped in the dorsolithotomy position with a gel pad under her lower back because she is asthenic. The bladder was emptied for 150 ml of urine and 10 mL of sterile milk was placed in the bladder. 2 Campos tenacula were placed on the cervix and it was injected circumferentially with 10 mL of 1:300,000 epinephrine solution. a circumscribing incision was made and the posterior cul-de-sac was entered without any difficulty. A stay suture was placed at 6:00. After dissecting the vaginal epithelium off the cervix in a cephalad direction pedicles were made of the uterosacral and then the cardinal ligaments and secured with 0 Vicryl William sutures, after which it was possible to enter the anterior peritoneum and place a Austyn retractor as well as pack the bowel cephalad with moist tapes. Pedicles were then made of the rest of the broad ligament on each side securing the final pedicle with a free tie and then a suture ligature of #0 Vicryl. The uterus was freed and the posterior two thirds of the vagina was reefed from one utero-ovarian ligament to the other for good hemostasis of the vaginal cuff. A potential enterocele sac posteriorly was closed using a 0 Vicryl bartters suture between the 2 uterosacral ligaments. With traction on each uterosacral ligament and #0 PDS suture was placed just above the level of the ischial spine bilaterally and one arm was brought out through the posterior vagina and the anterior part held for later use. The peritoneum was closed with a running suture of #0 Monocryl Quill. The anterior vagina was then injected similarly with 10 mL of dilute epinephrine solution and the vaginal epithelium was dissected off of the cystocele. The cystocele was reduced using 2 pursestring sutures of #3-0 Vicryl and then several Amina plication sutures. Excess vaginal epithelium was trimmed and the anterior vagina was closed with a running lock suture of #3-0 Vicryl. The uterosacral sutures were brought out through the anterior vagina medially and tied with just 2 throws without excessive traction because during placement the left ureter in particular had been palpated to be quite near the uterosacral ligament. The urologist came in to evaluate the ureters for patency and once the left ureter was found to be obstructed we removed first the uterosacral suspension stitch on the left side which still did not create patency, and then removed the whole anterior repair before ureteral stent stent was able to be passed. After this a sling was placed as per the urologist's dictation, and the anterior repair was performed again using 2 midline pursestring sutures of #3-0 Vicryl, 1 more cephalad to the other. It was possible to feel the left ureteral stent at this point and ensure that the sutures did not interfere with them. The anterior vagina was closed with a running lock suture of #3-0 Vicryl and then the vaginal cuff itself was closed with interrupted sutures of #0 Vicryl incorporating the uterosacral ligaments into the posterior vagina to elevate it further. During the cuff closure, the right sided uterosacral ligament suture was tied down with more throws to hold it in place. The posterior repair was carried out in standard fashion using the dilute epinephrine solution to inject the vagina and perineum and placing 2 Allis clamps at the base of the hymenal ring to allow just over 2 finger insertion, and the posterior vagina was dissected of the rectocele. FVC shaped piece of vaginal epithelium was removed pointing towards the anus. On the right side of this the skin felt rough and it was tagged and sent for pathology. It was obvious where the recto-vaginal fascia had avulsed from the perineal body and a U-shaped running lock suture of #0 Vicryl was used to reattach the rectovaginal fascia to the edges of the levator ani as well as to the perineal body this served to reduce the rectocele significantly and [id number] sutures were placed while weaknesses were noted including anteriorly towards the cuff. Excess vaginal epithelium was trimmed off and the posterior vagina was closed with a running lock suture of #2-0 Vicryl. As the perineum was approached at the outer third of the vagina the edges of the levators were brought together with #0 Vicryl sutures and the perineal body builds up bringing the bulbocavernosus and superficial transverse perineal muscles together in the midline. The closure was then completed with a subcuticular layer of #3-0 Vicryl. Quarter percent bupivacaine was injected around the perineal incision. The vagina was packed with 2 inch Kerlix with Estrace cream. Sponge needle and instrument counts were correct x2 and the patient was awakened and taken to the recovery area in good condition. Grafts/Implants Used: See urology procedure Complications Left ureteral obstruction, followed by suture removal and establishment of patency Admit VTE Documentation VTE Present on Admission: No VTE Mechan Device Prophylaxis: SCD's VTE Pharm Prophylaxis ordered?: No Reason prophylaxis not ordered:: Treatment Not Indicated
[2022-04-18] MEDS: Docusate Sodium 100 MG Capsule PO (22:19)
[2022-04-19] VITALS (22 sets, daily range): BP systolic 75–116; BP diastolic 45–70; PULSE 48–77; RESP 14–18; TEMP 36.4–37.3; O2SAT 96–100
[2022-04-19] MEDS: Acetaminophen 325 MG Tablet 650 MG PO ×3 (00:25→14:55)
[2022-04-19] MEDS: Ibuprofen 600 MG Tablet PO ×4 (00:25→17:30)
--- NOTE | 2022-04-19 05:09 | PCM.PN.BLA ---
Progress Note Notified per RN of BP's 80s/50s and P 60-70 with urine output first 4 hr of 50ml and same over next 4 hours. Per RN abdomen is soft, patient does not look pale. Assessment & Plan Assessment/Plan (1) Hypotension: (2) Oliguria: PLAN: Plan 500ml saline bolus, DC morphine DIRECTOR FRANCHISE SALES basal rate and will reassess UO in 1 hour. Urometer placed. Will see shortly.
[2022-04-19 05:30] LABS: Absolute Lymphocyte Count 1.61 X10^3/uL (0.83-4.51); Absolute Neutrophil Count 6.6 X10^3/uL (2.0-7.7); Basophil# 0.02 X10^3/uL; Basophil% 0.2 % (0-1); Hematocrit 32.5 % (37-47); Hemoglobin 10.4 g/dL (12.0-15.0); Lymphocyte # 1.61 X10^3/ul (0.83-4.51); Lymphocyte % 17.9 % (19-41); Mean Platelet Vol. 9.6 fl (6.2-12.0); Monocyte# 0.77 X10^3/uL; Monocyte% 8.6 % (0-10); NRBC Flagged by Analyzer 0 % (0-5); Neutrophil # 6.56 X10^3/uL (2.7-7.7); Platelet Count 193 K/mm3 (150-450); RBC Distribution Width CV 12.3 % (11.6-14.6); RBC Distribution Width SD 43.8 fl (35.1-43.9); Red Blood Count 3.35 M/mm3 (4.2-5.4)
[2022-04-19 05:55] LABS: ALB/GLOB Ratio 1.1 RATIO (0.9-2.4); AST(SGOT) 12 U/L (15-37); Alanine Aminotransfer ALT/SGPT 20 U/L (13-56); Albumin, Serum 2.7 g/dL (3.2-5.0); Alkaline Phosphatase 34 U/L (45-117); Anion Gap 4 (5-15); BUN 10 mg/dL (7-18); BUN/Creat Ratio 10.4 RATIO (10-20); Calcium,Total 8.3 mg/dL (8.5-10.1); Chloride 107 mmol/L (98-107); Creatinine, Serum 0.97 mg/dL (0.55-1.02); EST Glomerular Filtration Rate 63 mL/min (>60); Est Glom Filt Rate - Afr Amer 76 mL/min (>60); Estimated Creatinine Clearance 53.89 ml/min; Globulin 2.5 g/dL (2.2-4.2); Glucose 105 mg/dL (74-106); Potassium 4.2 mmol/L (3.5-5.1); Protein, Total 5.2 g/dL (6.4-8.2); Sodium Level 139 mmol/L (136-145)
--- NOTE | 2022-04-19 06:40 | PN_ITS ---
Progress Note Good pain control; 05/22, no nausea. Tolerating water. Aware of decreased UO during the night and efforts to correct. Physical Exam Const alert, oriented x3 and no apparent distress General Appearance: comfortable Orientation / Consciousness: awake HEENT normocephalic Chest inspection of chest normal Resp normal respiratory effort and clear to auscultation bilaterally Cardio regular rate and regular rhythm Cardio Narrative: normal low rate. good volume pulse. GI normal to inspection, nondistended, normoactive bowel sounds, soft to palpation and non-tender no CVA tenderness Narrative: Catheter draining clear, somewhat concentrated and blood tinged urine. Bladder / Kidney Exam: catheter in place Extremity no calf tenderness and no pedal edema Psych mental status grossly normal Assessment & Plan Assessment/Plan (1) Postoperative state: (2) Hypotension: (3) Oliguria: PLAN: Plan POD # 1 after TVH , A&P with cuff suspension urethral sling and left ureteral stent placement. Appears to have gone through oliguric 8 hours during the night with relative hypotension likely from TECHNICIAN HELPER INSTRUMENT pump. Responded very well to fluid boluses - over 1000ml output in the 2 hours since phone call re -hypotnsion/oliguria at 0440. Hb decreased to 10.3 - also likely from hemodilution Will remove vaginal packing at noon Ambulate, p.o. 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 Will stagger oral pain meds.
--- NOTE | 2022-04-19 10:33 | PCM.PN.GU ---
Subjective Subjective Feeling well this morning. No overnight events aside from needing a saline bolus. She is up and walking to the bathroom this morning. No nausea or emesis. Pain controlled. Objective Data Objective Data Vital Signs: Vital Signs Temp Pulse Resp BP Pulse Ox O2 Del Method O2 Flow Rate 98.7 F 50 L 18 87/51 L 99 Room Air 2 04/19/22 09:43 04/19/22 09:43 04/19/22 09:43 04/19/22 09:43 04/19/22 09:43 04/19/22 09:43 04/19/22 02:24 Oxygen Flow Rate (L/min) 2 Oxygen Delivery Method Room Air Weight: 54 kg Body Mass Index (BMI) 19.8 Intake & Output: Intake and Output for Last 24 Hours 04/17/22 04/18/22 04/19/22 23:59 23:59 23:59 Intake Total 6387.5 / 6437.5 700 / 700 Output Total 1050 / 1050 1075 / 1075 Balance 5337.5 / 5387.5 -375 / -375 Lab / Micro Data Result Diagrams: 04/19/22 05:19 04/19/22 05:19 Labs: Laboratory Results - last 24 hr 04/19/22 05:19: Sodium 139, Potassium 4.2, Chloride 107, Carbon Dioxide 28.0, Anion Gap 4 L, BUN 10, Creatinine 0.97, Estim Creat Clear Calc 53.89, Est GFR (MDRD) Af Amer 76, Est GFR (MDRD) Non-Af 63, BUN/Creatinine Ratio 10.4, Glucose 105, Calcium 8.3 L, Total Bilirubin 0.50, AST 12 L, ALT 20, Alkaline Phosphatase 34 L, Total Protein 5.2 L, Albumin 2.7 L, Globulin 2.5, Albumin/Globulin Ratio 1.1 04/19/22 05:19: WBC 9.0, RBC 3.35 L, Hgb 10.4 L, Hct 32.5 L, MCV 97.0, MCH 31.0, MCHC 32.0, RDW Std Deviation 43.8, RDW Coeff of Tresa 12.3, Plt Count 193, MPV 9.6, Immature Gran % (Auto) 0.300, Neut % (Auto) 73.0 H, Lymph % (Auto) 17.9 L, [place] % (Auto) 8.6, Eos % (Auto) 0.0, Baso % (Auto) 0.2, Absolute Neuts (auto) 6.6, Absolute Lymphs (auto) 1.61, Nucleated RBC % 0 Physical Exam Const alert, oriented x3 and no apparent distress Neck supple General: trachea midline Chest inspection of chest normal Chest: symmetrical chest wall rise Resp normal respiratory effort, normal air movement and no retractions Cardio regular rate and regular rhythm GI soft to palpation, non-tender and non-distended Narrative: urine concentrated clear Bladder / Kidney Exam: catheter in place Extremity normal to inspection Extremity Narrative: SCD's in place Skin no rashes or lesions noted, skin turgor normal, no jaundice, no petechiae and no mottling Neuro oriented x3 and moves all extremities Psych mental status grossly normal, thought process normal, cooperative and affect normal Assessment & Plan Assessment/Plan (1) Uterovaginal prolapse, incomplete: (2) Stress incontinence: PLAN: Plan Home later today connell out Saturday night follow up with me on Saturday morning antibiotics and pain medication per
[2022-04-19] MEDS: Lactated Ringers 1,000 ML 125 ML IV (11:00)
[2022-04-19] MEDS: Docusate Sodium 100 MG Capsule PO (11:01)
[2022-04-19] MEDS: Methenamine Hippurate 1 GM Tablet PO (11:05)
== END 2022-04-19 19:21 | disposition home or self-care (01) ==
LOC: MS3 04-19 07:49 → SDC 04-19 09:45 → MS3 04-19 09:45
PROVIDERS: Anesthesiology; Obstetrics & Gynecology Gynecology; Admitting Provider Urology; PCP Family Medicine; Referring Provider Urology; Visit Provider Urology
PROC: (CPT 58260; principal; 2022-04-18 12:10)
PROC: 0TJB8ZZ Inspection of Bladder, Via Natural or Artificial Opening Endoscopic (ICD-10-PCS; CPT 57288; 2022-04-18 12:10)
DX: N81.2 Incomplete uterovaginal prolapse (principal); I95.9 Hypotension, unspecified; N39.3 Stress incontinence (female) (male); M99.01 Segmental and somatic dysfunction of cervical region; M99.02 Segmental and somatic dysfunction of thoracic region; M99.03 Segmental and somatic dysfunction of lumbar region; M99.04 Segmental and somatic dysfunction of sacral region; M54.16 Radiculopathy, lumbar region; E04.2 Nontoxic multinodular goiter; R53.83 Other fatigue; Z79.899 Other long term (current) drug therapy; N88.8 Other specified noninflammatory disorders of cervix uteri; N85.01 Benign endometrial hyperplasia; D25.9 Leiomyoma of uterus, unspecified; N36.42 Intrinsic sphincter deficiency (ISD); N13.5 Crossing vessel and stricture of ureter without hydronephrosis
CPT/HCPCS: 58260; 57260; 57288; 00944; 52332; 36415; 76000; 80048; 80053; 85025; 85027; 86850; 86900; 86901; 88305; 88307; 93005; 96361; 96365; 96375; 99218; J7040; J7120; C1758; C1769; C2617; G0378; J2270; J2405; Q9968

== ENCOUNTER → 2022-06-18 | Outpatient (CLI) | payer OTHER, SELFPAY | END | disposition home or self-care (01) | LOC: MTLAB 10:30 | PROVIDERS: PCP Family Medicine; Referring Provider Family Medicine; Visit Provider Family Medicine | DX: N39.0 Urinary tract infection, site not specified (principal) | CPT/HCPCS: 87086 ==

== ENCOUNTER → 2022-12-27 | Outpatient (CLI) | payer OTHER, SELFPAY ==
--- NOTE | 2022-12-27 12:14 | BI_ITS ---
MAMMOGRAPHY - BILATERAL SCREENING REASON FOR EXAM: Female, 57 years old. Routine annual screening examination. PERTINENT HISTORY: Non-contributory. Remote left stereotactic breast biopsy. TECHNIQUE: Digital bilateral breast chana (3D mammographic acquisition) in the CC and MLO projections. 2-D mediolateral oblique (MLO) and craniocaudad (CC) views of both breasts were obtained. CAD: Full Field Digital Mammography with Computer Added Detection was performed. COMPARISON: Comparison is made with prior study November 07, 2021 and October 26, 2020. FINDINGS: Breast Composition: The breasts are extremely dense, which lowers the sensitivity of mammography. There are no dominant masses or suspicious calcifications. No other significant abnormalities are identified. There has been no significant change since the prior study. BI/SCRN MAMM (CAD)W/CHANA BILAT IMPRESSION: Stable bilateral screening mammogram. Yearly follow-up mammogram recommended. (A) ASSESSMENT CATEGORY: BIRADS Category 1: Negative. A letter regarding these results will be sent to the patient by the facility within 30 days. Approximately 10% of breast cancers are not detected by mammography. A normal mammogram should not delay biopsy of a clinically suspicious abnormality. [id number] Electronically Signed: Hermelindo Ramos MD at 8:11 EDT ,
== END | disposition home or self-care (01) ==
LOC: OPBI 12:12
PROVIDERS: PCP Family Medicine; Referring Provider Obstetrics & Gynecology Gynecology; Visit Provider Obstetrics & Gynecology Gynecology
DX: Z12.31 Encounter for screening mammogram for malignant neoplasm of breast (principal)
CPT/HCPCS: 77063; 77067

== ENCOUNTER 2023-01-21 13:00 | Outpatient (RCR) | payer OTHER, SELFPAY ==
--- NOTE | 2022-11-23 10:01 | HP.PTEVAL_ITS ---
Patient's Visit Information Visit Information Visit Information: ALEXIS WASHBURN is a 56 year old F referred to Physical Therapy by Dr. Kasey Sutherland MD with a diagnosis of CYSTOCELE, DYSPIREUMIC S/P PELVIC FLOOR RECONSTRUCTION. Date of Evaluation: 09/19/22 Physical Therapist: Daniella Boswell PT, Cert MDT Visit Plan Frequency: 1x/Week Duration: 8-12 WKS Plan: PF THERAPY FOR STRENGTHENING, LENGTHENING/RELAXATION AND ENDURANCE TRAINING. PELVIC FLOOR STRENGTHENING. URINARY RETENTION, URGE AND FREQUENCY EDUCATION. HEALTHY BLADDER HABIT EDUCATION. TRAINING IN COORDINATION OF PELVIC FLOOR MUSCULATURE WITH HIP AND CORE (TRANSVERSE ABDOMINUS) MUSCULATURE. POSTURE CORRECTION/STRENGTHENING. CORE STRENGTHENING. JW LE ROM, STRETCHING AND STRENGTHENING. TRAINING IN ABDOMINAL CAVITY PRESSURE MGMT WITH ADL'S. 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 NOT ON WORK RESTRICTIONS BUT DR. SUTHERLAND DOES NOT WANT HER LIFTING MORE THAN 20 LBS. 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 Present symptoms: SOME TIMES NOT MAKING TO THE BATHROOM IN TIME BUT INFREQUENT. SLIGHT PROLAPSE. NO PAIN OTHER THAN ATTEMPTING INTERCOURSE. PATIENT REPORTS SHE HAS HAD SOME INCONTINENCE FOR YEARS. Is it getting better, worse or staying the same: STAYING THE SAME. Commenced as a result of: VAGINAL DELIVERY OF LARGE SECOND CHILD. Worse: COFFEE, INTERCOURSE Better: NOT DRINKING MUCH COFFEE AT THE END OF THE DAY. AVOIDING INTERCOURSE. Disturbed sleep: GETTING UP 0-1 TIMES A NIGHT TO URINATE Previous history/Previous treatment: PESSARY PRIOR TO SURGERY. SOME PAIN WITH INTERCOURSE FROM DRYNESS PRIOR TO SURGERY BUT NOW UNABLE TO EVEN GET INTO VAGINA DUE TO PAIN. Treatment this episode: PF SURGERY 04/18/23. ESTROGEN CREAM - PRESCRIBED A WEEK AGO FOR Dyspareunia. Gait: NORMAL How long can you delay the need to urinate: 2-3 MINUTES Prolapse (Falling out feeling): SLIGHT - INTERMITTENT. Frequency of Urination: ABOUT 8 TIMES A DAY. Ability to stop urine flow: YES Ability to initiate urine stream: YES Dyspareunia: YES - HAVE NOT BEEN ABLE TO HAVE INTERCOURSE WITH MY POST OP. Bowel Incontinence: NO Unexplained weight loss: NO Imaging: NO IMAGING SINCE SURGERY (04/18/23). PMH/Recent major surgery: UNREMARKABLE. OTHER: PATIENT STATES SHE WANTS TO DO PF THERAPY TO STRENGTHEN MUSCLES TO PREVENT reoccurrence OF PROLAPSE AND SUBSEQUENT SURGERY. SHE REPORTS HER MOST RECENT POST OP VISIT INDICATED VERY SLIGHT PROLAPSE. I AM HOPING TO BE LESS RESTRICTIVE IN MY DAILY ACTIVITIES; CURRENTLY, DR. SUTHERLAND HAS LIMITED LIFTING TO 20 LBS. PATIENT REPORTS SHE TOLERATED DR. SUTHERLAND'S VAGINAL EXAM WELL A WK AGO. Objective Objective: Sitting/Standing Posture: FAIR. NO RELEVANT LATERAL LUMBAR SHIFT. LORDOSIS - NORMAL Other Observations: INDEP GAIT AND TRANSFES Sensory deficit: JW LE LIGHT TOUCH SENSATION GROSSLY INTACT AND SYMMETRICAL ROM deficit: TIGHT JW HIP ABDUCTORS, HS'S AND GASTROC SOLEUS COMPLEX'S Motor deficit: JW LE'S GROSSLY 5/5 WITH MMT'ING EXCEPT HIPS 4/5. Dural Signs: NEGATIVE JW LE'S. Lumbar ROM: WFL Core strength: POOR TO FAIR Palpation: NO INTERNAL VAGINAL PALPATION TODAY BUT DISCUSSED THE POSSIBLE BENEFITS OF MANUAL PF THERAPY WITH PATIENT IS SHE IS GOING TO CONSIDER. FUNCTIONAL SCREEN: Incontinence Impact Questionnaire Score: 2 Urogenital Distress Inventory Score: 3 Goals Goal 1:: PATIENT WILL BE ABLE TO HAVE SEXUAL RELATIONS WITH HER WITHOUT PAIN. Goal Time Frame: 8-12 Weeks Goal 2:: PATIENT WILL SUCCESSFULLY DELAY VOIDING LONG NEEDED WHEN URGENCY OCCURS TO SUCCESSFULLY MAKE IT TO THE BATHROOM. Goal Time Frame: 8-12 Weeks Goal 3:: PATIENT WILL DEMONSTRATE/COMMUNICATE 10 CONSISTENT AND CONSECUTIVE 10 SECOND PELVIC FLOOR MUSCLE CONTRACTIONS TO DEMONSTRATE IMPROVED PELVIC FLOOR ENDURANCE. Goal Time Frame: 4-6 Weeks Goal 4:: NORMALIZE VOIDING FREQUENCEY TO EVERY 3-4 HOURS. Goal Time Frame: 4-6 Weeks Goal 5:: PATIENT WILL BE INDEP WITH A HEP/HOME INSTRUCTIONS FOR CONTINUED IMPROVEMENT ONCE FORMAL PHYSICAL THERAPY CONCLUDES. Goal Time Frame: 8-12 Weeks Anticipated Interventions Patient/Client Instruction: Educate patient on: Condition, Plan of Care and Risk Factors For the Purpose of:: To improve self management Therapeutic Exercise to Include: Strength training, Endurance training, Flexibilty training, Neuromotor development and Relaxation training For the Purpose of:: To decrease pain, To increase ROM and To improve muscle performance and motor function Manual Therapy Techniques to Include: Trigger point massage and Soft tissue mobilization For the Purpose of:: To decrease pain, To improve muscle performance and motor function and To decrease soft tissue restriction Text: Thank you for the opportunity to evaluate your patient. For Medicare and Medicare HMO plans, please review the plan of care and approve it. It will need to be FAXED BACK to us at [phone] for Medicare purposes. For Medicare only, by signing this I certify the plan of care. Please let me know if there are questions or concerns regarding this plan of care. Physician Signature: __Date:
--- NOTE | 2023-01-21 13:35 | HP.PTDCSUM ---
Discharge Summary D/C summary: It has been my pleasure to treat ALEXIS WASHBURN referred by Dr. Kasey Sutherland MD, with the diagnosis of CYSTOCELE, DYSPIREUMIC S/P PELVIC FLOOR RECONSTRUCTION for a total of 7 visit(s). Discharge Date: Please see the following information for a summary of their discharge status. Subjective Subjective: PATIENT REPORTS INTERCOURSE IS MUCH MUCH BETTER. SHE REPORTS IT ISN'T THE PAIN THAT SHE WAS HAVING BEFORE AND SHE RELATES DISCOMFORT WITH INTERCOURSE TO MENOPAUSAL DRYNESS AND SHE SPOKE WITH DR. [place] ABOUT IT. PATIENT REPORTS SHE IS STILL HAVING URGENCY IN THE MORNINGS AND SHE THINKS IT IS THE COFFEE. SOME URGENCY IN THE AFTERNOONS. NOT MUCH LEAKAGE - MAYBE A COUPLE TIMES A WK NOW. Overall Improvement % Improvement: 98 Objective Objective/Function: THIS PATIENT HAS RESPONDED WELL TO PT. SHE REPORTS SHE WANTED A LITERAL PLAN FOR WHAT TO DO TO HELP THE SURGERY BE SUCCESSFUL AND SHE FEELS LIKE SHE HAS THAT NOW. SHE DEMONSTRATES/COMMUNICATES A GOOD UNDERSTANDING OF ALL INSTRUCTIONS THAT HAVE BEEN GIVEN AND SHE IS INDEP WITH A HEP. SHE IS APPROPRIATE FOR AND AGREEABLE TO DISCHARGE FROM PT AT THIS TIME. FUNCTIONAL SCREEN: Incontinence Impact Questionnaire Score: 3 Urogenital Distress Inventory Score: 2 Goals Goal 1:: PATIENT WILL BE ABLE TO HAVE SEXUAL RELATIONS WITH HER WITHOUT PAIN. Goal Progress: Progressing Goal 2:: PATIENT WILL SUCCESSFULLY DELAY VOIDING LONG NEEDED WHEN URGENCY OCCURS TO SUCCESSFULLY MAKE IT TO THE BATHROOM. Goal Progress: Progressing Goal 3:: PATIENT WILL DEMONSTRATE/COMMUNICATE 10 CONSISTENT AND CONSECUTIVE 10 SECOND PELVIC FLOOR MUSCLE CONTRACTIONS TO DEMONSTRATE IMPROVED PELVIC FLOOR ENDURANCE. Goal Progress: Goal Met Goal 4:: NORMALIZE VOIDING FREQUENCEY TO EVERY 3-4 HOURS. Goal Progress: Progressing Goal 5:: PATIENT WILL BE INDEP WITH A HEP/HOME INSTRUCTIONS FOR CONTINUED IMPROVEMENT ONCE FORMAL PHYSICAL THERAPY CONCLUDES. Goal Progress: Goal Met Plan Plan: D/C D/C Information d/c sentence: If there are questions or concerns regarding this patient's physical therapy, please feel free to call me at [phone]. Thank you for the referral of this patient. Sincerely, Daniella Boswell, PT, Cert MDT Balance/Gait/Functional tests Improvement % Improvement: 98
== END 2023-01-21 19:00 | disposition home or self-care (01) ==
LOC: PT 13:00
PROVIDERS: PCP Family Medicine; Referring Provider Urology; Visit Provider Urology
DX: N81.10 Cystocele, unspecified (principal); N94.10 Unspecified dyspareunia
CPT/HCPCS: 97162; 97530

== ENCOUNTER → 2023-05-03 | Outpatient (CLI) | payer OTHER, SELFPAY ==
[2023-05-03 11:54] LABS: Bacteria 0 SEEN /hpf (None Seen); Mucous, Urine 0 SEEN /hpf (<or=2+); Red Blood Cells-Urine 0 SEEN /hpf (0-5); White Blood Cells 0 SEEN /hpf (0-5)
[2023-05-03 12:37] LABS: Color, Urine Yellow (Yellow); Glucose, Dipstick Normal (Normal); Ketone-Dipstick Negative (Negative); Leukocyte Esterase-Dipstick Negative /ul (Negative); Nitrite-Dipstick Negative (Negative); Occult Blood-Urine Negative /ul (Negative); Protein-Dipstick Negative (Negative); Urine Bilirubin Dipstick Negative (Negative); Urine Clarity Clear (Clear); Urine Urobilinogen Normal (Normal)
[2023-05-03 12:47] LABS: Squamous Epithelial Cells - UA 0-5 SEEN /hpf (5-10)
== END | disposition home or self-care (01) ==
LOC: LAB 11:51
PROVIDERS: PCP Family Medicine; Visit Provider Nurse Practitioner Family
DX: R39.15 Urgency of urination (principal)
CPT/HCPCS: 81001; 87077; 87086; 87088

== ENCOUNTER → 2023-11-25 | Outpatient (CLI) | payer OTHER, SELFPAY ==
--- NOTE | 2023-11-25 12:27 | RAD_ITS ---
STUDY: X-RAY STERNUM REASON FOR EXAM: Female, 57 years old. Contusion of unspecified front wall of thorax, initial encounter TECHNIQUE: 3 view(s) of the sternum were obtained. COMPARISON: None. FINDINGS: Normal bilateral sternoclavicular articulations. Normal manubrium. Normal sternomanubrial joint. Normal sternal body and xiphoid process. There is no demonstrated fracture of the sternum. Normal visualized anterior ribs. Normal visualized lungs. The soft tissue structures are unremarkable. RAD/Sternum min 2 Views IMPRESSION: Normal x-ray examination of the sternum. Electronically Signed: Hermelindo Ramos MD at 13:33 EDT ,
--- NOTE | 2023-11-25 12:50 | RAD_ITS ---
STUDY: X-RAY CHEST REASON FOR EXAM: Female, 57 years old. Contusion of unspecified front wall of thorax, initial encounter TECHNIQUE: PA and lateral views of the chest. COMPARISON: Comparison is made with prior study dated March 12, 2015. FINDINGS: There is hyperinflation of the lungs consistent with chronic obstructive lung disease (COPD). There is no demonstrated pleural abnormality. Normal size heart. Normal mediastinum and luis. Normal visualized pulmonary arteries. Normal visualized aortic arch and descending thoracic aorta. Normal visualized thoracic spine. Normal visualized ribs, clavicles, and shoulders. There is no demonstrated abnormality of the visualized soft tissue structures of the upper abdomen. RAD/Chest PA and Lateral IMPRESSION: Hyperinflation. The lungs are clear. Electronically Signed: Hermelindo Ramos MD at 13:34 EDT ,
== END | disposition home or self-care (01) ==
PROVIDERS: PCP Family Medicine; Referring Provider Family Medicine; Visit Provider Family Medicine
DX: S20.219A Contusion of unspecified front wall of thorax, initial encounter (principal)
CPT/HCPCS: 71046; 71120

== ENCOUNTER → 2024-12-16 | Outpatient (CLI) | payer OTHER, SELFPAY ==
--- NOTE | 2024-12-16 15:04 | BI_ITS ---
EXAM: SCRN MAMM (CAD)W/CHANA BILAT DATE: 12/16/2024 CLINICAL HISTORY: F, Age 58 y/o , SCREENING TECHNIQUE: SCRN MAMM (CAD)W/CHANA BILAT COMPARISON: Prior exam(s) were compared FINDINGS: TISSUE DENSITY: The breasts are heterogeneously dense, which may obscure small masses. Bilateral Breast Mammographic Findings: No suspicious masses, calcifications or other abnormalities are identified. BI/SCRN MAMM (CAD)W/CHANA BILAT IMPRESSION: No mammographic evidence of malignancy in either breast OVERALL FINAL ASSESSMENT BI-RADS 1: NEGATIVE. RECOMMENDATION: Routine annual follow-up in 1 Year A letter with findings and recommendations will be mailed to the patient. Reading Location: [id number]
--- NOTE | 2024-12-16 15:07 | BD_ITS ---
PROCEDURE: DEXA BONE DENSITY STUDY 12/16/2024 REASON FOR EXAM: F, age 58 y/o . Postmenopausal. TECHNIQUE: DEXA BONE DENSITY STUDY COMPARISON: None FINDINGS: BMD and T-SCORES Lumbar spine: 0.808 g/cm2, T-score -2.2 Levels: L1 through L4 Left femoral neck: 0.717 g/cm2, T-score -1.2 Femoral neck comparison data not recommended for monitoring change. Left total hip: 0.063 g/cm2, T-score -0.7 Right femoral neck: 0.688 g/cm2, T-score -1.4 Femoral neck comparison data not recommended for monitoring change. Right total hip: 0.851 g/cm2, T-score -0.7 The World Health Organization has defined the following categories based on bone density: Normal bone density: T-score equal to or greater than -1.0 Osteopenia: T-score between -1.0 and -2.5 Osteoporosis: T-score equal to or less than -2.5 The patient does meet the pharmacological treatment recommendations for prevention of osteoporosis. BD/Dexa Bone Density Study IMPRESSION: OSTEOPENIA. Recommend follow-up as clinically warranted. Reading Location: [facility]
== END | disposition home or self-care (01) ==
PROVIDERS: PCP Family Medicine; Referring Provider Obstetrics & Gynecology Gynecology; Visit Provider Obstetrics & Gynecology Gynecology
DX: Z01.419 Encounter for gynecological examination (general) (routine) without abnormal findings (principal); Z12.31 Encounter for screening mammogram for malignant neoplasm of breast; Z13.820 Encounter for screening for osteoporosis; Z78.0 Asymptomatic menopausal state
CPT/HCPCS: 77063; 77067; 77080

== ENCOUNTER → 2025-02-23 | Outpatient (CLI) | payer OTHER, SELFPAY ==
[2025-02-23 17:43] LABS: Vitamin D,25 Hydroxy 60.4 ng/mL (30-100)
== END | disposition home or self-care (01) ==
LOC: LAB.FUTURE 15:48
PROVIDERS: PCP Family Medicine; Referring Provider Family Medicine; Visit Provider Obstetrics & Gynecology Gynecology
DX: Z13.9 Encounter for screening, unspecified (principal)
CPT/HCPCS: 36415; 82306